=== PATIENT | female | born 1970 | race Hispanic/Latino ===

== ENCOUNTER 2022-05-04 06:42 | Emergency (ER) | payer BC ==
--- OUTSIDE RECORDS SUMMARY | 2022-05-04 06:46 | XMS REPORT | Continuity of Care Document ---
:1970 Author Organization [facility] t Address [address] [place] [address] Care Team Providers Name Role Phone ALEN CARCAMO Primary Care Physician Unavailable FISH Attending Clinician Unavailable Provider, Urgent Care Attending Clinician Unavailable Mauri Bergeron Attending Clinician Mauri DAWSON Attending Clinician Unavailable Doctor Unassigned, Name Attending Clinician Unavailable Fior HEALTH PLAN MANAGER, J Attending Clinician Lab, Fam Pob I Attending Clinician Unavailable Anene HEALTH PLAN MANAGER Attending Clinician ANENE Attending Clinician Unavailable Payers Payer Name Policy Type Policy Number Effective Date Expiration Date S stuart [facility] [id number] 2019 00:00:00 Problems Condition Condition Condition Status Onset Resolution Last Treating Co mments Source Name Details Category Date Date Treatment Clinician Date No known No known Disease Unive rs active active ity of problems problems [facility] Allergies, Adverse Reactions, Alerts Allergy Allergy Status Severity Reaction(s) Onset Inactive Treating Comm ents Source Name Type Date Date Clinician NO KNOWN Drug Active Univers ALLERGIE Class ity of S [facility] Social History Social Habit Start Date Stop Date Quantity Comments Source Exposure to Not sure [facility] SARS-CoV-2 [facility] (event) [place] Tobacco use and 2021-06-02 2021-06-02 Never used Universit y of exposure 00:00:00 00:00:00 [facility] Alcohol intake 2021-06-02 2021-06-02 Current drinker Unive rsity of 00:00:00 00:00:00 of alcohol [facility] (finding) [place] Sex Ass[birth year] At [birth year] Universit y of 00:00:00 00:00:00 [facility] Smoking Status Start Date Stop Date Source Unknown if ever smoked [facility] Never smoker [facility] Medications Ordered Filled Start Stop Current Ordering Indication Dosage Frequency Signature Comments Components Source Medication Medication Date Date Medication? Clinician (SIG) Name Name azelastine Yes [id number] 1{spray Use 1 Univers 137 mcg 7-07 } [place] in ity of (0.1 %) 00:00: each [place] nasal spray 00 nostril 2 Med ical (two) Branch times daily. Use in each nostril as directed benzonatate Yes [id number] 100mg Take 1 Univers (TESSALON 7-07 capsule by ity of [place]) 100 00:00: mouth 3 Jules as mg capsule 00 (three) Medica l times Branch daily. azelastine Yes [id number] 1{spray Use 1 Univers 137 mcg 7-07 } [place] in ity of (0.1 %) 00:00: each [place] nasal spray 00 nostril 2 Med ical (two) Branch times daily. Use in each nostril as directed benzonatate Yes [id number] 100mg Take 1 Univers (TESSALON 7-07 capsule by ity of [place]) 100 00:00: mouth 3 Jules as mg capsule 00 (three) Medica l times Branch daily. azelastine Yes [id number] 1{spray Use 1 Univers 137 mcg 7-07 } [place] in ity of (0.1 %) 00:00: each [place] nasal spray 00 nostril 2 Med ical (two) Branch times daily. Use in each nostril as directed benzonatate Yes [id number] 100mg Take 1 Univers (TESSALON 7-07 capsule by ity of [place]) 100 00:00: mouth 3 Jules as mg capsule 00 (three) Medica l times Branch daily. Vital Signs Vital Name Observation Time Observation Value Comments Source Systolic blood 2021-06-02 18:48:00 121 mm[Hg] Univer sity of pressure [facility] Diastolic blood 2021-06-02 18:48:00 82 mm[Hg] [facility] Heart rate 2021-06-02 18:48:00 91 /min [facility] Body temperature 2021-06-02 18:48:00 37.06 [facility] Respiratory rate 2021-06-02 18:48:00 16 /min [facility] Body height 2021-06-02 18:48:00 154.9 cm [facility] Body weight 2021-06-02 18:48:00 83.915 kg [facility] BMI 2021-06-02 18:48:00 34.96 kg/m2 [facility] Oxygen saturation in 2021-06-02 18:48:00 97 /min [facility] Arterial blood by [facility] Pulse oximetry [place] Procedures This patient has no known procedures. Encounters Start End Encounter Admission Attending Care Care Encounter Source Date/Time Date/Time Type Type Clinicians Facility Department ID 2021-11-22 2021-11-22 Outpatient WILLY OLIVEROSN [facility] [id number] Univers 09:00:00 09:00:[id number] 2021-11-22 2021-11-22 Outpatient R ARIN OLIVEROS [facility] [id number] Univers 09:00:00 09:00:[address] [facility] 2021-06-02 2021-06-02 Urgent Provider, Con Urgent Care [facility] [id number] Univers 13:44:56 14:35:43 Zaira Díaz [facility] [id number] ity [facility] [id number] Jules as Professio [phone] Ak dical [facility] [address] 2021-06-02 2021-06-02 Outpatient R [facility] [id number] Univers 14:00:00 14:00:[id number] [facility] 2021-06-02 2021-06-02 Outpatient R EUNICE [facility] [id number] Univers 14:00:00 14:00:00 ZAIRA [facility] 2021-06-02 2021-06-02 Letter Doctor HOWELL [id number] Univers 00:00:00 00:00:00 (Out) Unassigned, DARRON [id number] ity of [facility] [id number] Jules as [id number] [address] 2021-06-02 2021-06-02 Letter Doctor LYNDA [id number] Univers 00:00:00 00:00:00 (Out) Unassigned, DARRON [id number] ity of [facility] 4.2.7.2.686 Jules as [id number] [address] 2021-01-22 2021-01-22 [facility] [id number] Univers 00:00:00 00:00:00 [facility] [id number] ity of [place] [id number] Jules as Professio [phone] [address] 2021-01-21 2021-01-21 Laboratory Lab, Adc Fam Pob I [facility] [id number] Univers 15:50:28 16:10:[address] [facility] [id number] ity of [place] [id number] Jules as Professio [id number] [address] 2021-01-21 2021-01-21 Outpatient R CORY [facility] [id number] Univers 15:40:00 15:40:00 KIANNA ity of [facility] 2021-01-21 2021-01-21 Letter Doctor LYNDA [id number] Univers 00:00:00 00:00:00 (Out) Unassigned, DARRON [id number] ity of [facility] [id number] Jules as [id number] [address] Results This patient has no known results.
[2022-05-04] MEDS ORDERED: ONDANSETRON 4 MG (ODT) TAB ONE (07:25)
[2022-05-04] MEDS ORDERED: METOCLOPRAMIDE 10 MG/2mL INJ ONE (07:32)
[2022-05-04] MEDS ORDERED: DIPHENHYDRAMINE 50 MG/ML VIAL ONE (07:32)
--- NOTE | 2022-05-04 08:10 | RAD REPORT ---
EXAM DESCRIPTION: CT - Head Brain Wo Cont - 05/04/2022 8:01 am CLINICAL HISTORY: Headache, new or worsening Headache, drowsiness COMPARISON: HEAD BRAIN W O CONTRAST dated 07/07/2008 TECHNIQUE: All CT scans are performed using dose optimization technique as appropriate and may inclu de automated exposure control or mA/KV adjustment according to patient size. FINDINGS: No intracranial hemorrhage, hydrocephalus or extra-axial fluid collection.No areas of brai n edema or evidence of midline shift. The paranasal sinuses and mastoids are clear. The calvarium is intact. IMPRESSION: No acute intracranial abnormality.
--- NOTE | 2022-05-04 08:31 | ER ---
Nurse's Notes [facility] Name: Chantal Newton Age: 51 yrs Sex: Female : 1970 Arrival Date: 05/04/2022 Time: 06:45 Bed 17 Private MD: Diagnosis: Headache Presentation: 05/04 06:57 Chief complaint: Patient states: she has been feeling bad since yesterday with a bb headache, dizziness, blurred vision, SOB, and a bad headache which worsened last night. Spouse states she almost passed out at work yesterday. Coronavirus screen: At this time, the client does not indicate any symptoms associated with coronavirus-19. Ebola Screen: No symptoms or risks identified at this time. Initial Sepsis Screen: Does the patient meet any 2 criteria? No. Patient's initial sepsis screen is negative. Does the patient have a suspected source of infection? No. Patient's initial sepsis screen is negative. Risk Assessment: Do you want to hurt yourself or someone else? Patient reports no desire to harm self or others. Onset of symptoms was May 03, 2022. 06:57 Method Of Arrival: Ambulatory bb 06:57 Acuity: AZAM 3 bb Triage Assessment: 07:00 Headache History: The patient has had previous headaches and this one is more severe bb than previous episodes. 07:00 Pain: Pain currently is 9 out of 10 on a pain scale. Pain began 1 day ago. Also jh6 complains of nausea, photophobia. 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 - Social history:: Smoking status: Patient reports the use of cigarette tobacco products. Screenin:16 Abuse screen: Denies threats or abuse. Nutritional screening: No deficits noted. jh6 Tuberculosis screening: No symptoms or risk factors identified. Fall Risk None identified. Assessment: 07:15 General: Appears uncomfortable, Behavior is calm, cooperative. Pain: Complains of pain jh6 in face. Neuro: Level of Consciousness is awake, alert, obeys commands, Oriented to person, place, time, situation, Reports blurred vision in iris of right eye and iris of left eye headache in entire photophobia weakness since over the last todays. 08:07 Reassessment: Patient and/or family updated on plan of care and expected duration. Pain jh6 level reassessed. Patient is alert, oriented x 3, equal unlabored respirations, skin warm/dry/pink. still slightly dizzy but no longer felling nauseated Patient states feeling better. 08:41 Reassessment: Patient and/or family updated on plan of care and expected duration. Pain jh6 level reassessed. Patient states feeling better. Pain: Denies pain. Complains of pain in face. Neuro: No deficits noted. Vital Signs: 06:57 BP 172 / 84; Pulse 66; Resp 20 S; Temp 97.7(O); Pulse Ox 99% on R/A; Weight 81.65 kg bb (R); Height 5 ft. 1 in. (154.94 cm) (R); Pain 10/10; 08:42 BP 136 / 74; Pulse 71; Resp 16; Pulse Ox 100% ; Pain 2/10; jh6 06:57 Body Mass Index 34.01 (81.65 kg, 154.94 cm) bb Protem Coma Score: 08:31 Eye Response: spontaneous(4). Verbal Response: oriented(5). Motor Response: obeys ms3 commands(6). Total: 15. ED Course: 06:45 Patient arrived in ED. ja2 06:55 Kimberlee Negro, RN is Primary Nurse. lg3 06:57 Hernan Klein DO is Attending Physician. ms3 07:00 Triage completed. bb 07:00 Arm band placed on Patient placed in an exam room, on a stretcher, on pulse oximetry. bb 07:00 Bed in low position. Call light in reach. Side rails up X 1. jh6 07:16 No provider procedures requiring assistance completed. jh6 07:26 Inserted saline lock: 22 gauge in right forearm, using aseptic technique. jg9 07:[address] via wheelchair. jh6 08:03 CT Head Brain wo Cont In Process Unspecified. EDMS 08:30 Brandon Leyva DO is Referral Physician. ms3 08:42 IV discontinued, intact, bleeding controlled, No redness/swelling at site. Pressure 6 dressing applied. Administered Medications: 07:30 Drug: Reglan (metoCLOPramide) 10 mg Route: IVP; Site: right antecubital; 6 08:44 Follow up: Response: Marked relief of symptoms [facility] 07:30 Drug: Benadryl (diphenhydrAMINE) 25 mg Route: IVP; Site: right antecubital; 6 08:44 Follow up: Response: Pain is decreased [facility] er 07:30 Drug: Ondansetron 4 mg Route: PO; 6 08:44 Follow up: Response: Pain is decreased [facility] er Outcome: 08:30 Discharge ordered by . ms3 08:42 Discharged to home ambulatory. 6 08:42 Condition: improved 08:42 Discharge instructions given to patient, family, Instructed on discharge instructions. 08:44 Patient left the ED. [facility] Signatures: Dispatcher [employer] EDMS Kathy Virk RN RN bb Gibson, Lacie, RN RN 3 Hernan Klein DO DO ms3 Felipa Yen Jennifer, RN RN jh6 Ciara Walker RN RN jg9
--- NOTE | 2022-05-04 08:31 | EDPHYS ---
Physician Documentation [facility] Name: Chantal Newton Age: 51 yrs Sex: Female : 1970 Arrival Date: 05/04/2022 Time: 06:45 Bed 17 Private MD: ED Physician Hernan Klein HPI: 05/04 08:31 This 51 yrs old Female presents to ER via Ambulatory with complaints of ms3 Headache, Dizziness, Nausea. 08:31 The patient complains of pain to the generalized. The patient describes the headache as ms3 aching. Onset: The symptoms/episode began/occurred last night. Associated signs and symptoms: Pertinent positives: nausea, vomiting. Severity of symptoms: in the emergency department the pain is unchanged, a " 10" out of "10". Headache History: The patient has had previous headaches and this one is more severe than previous episodes. The symptoms are alleviated by nothing. the symptoms are aggravated by nothing. 51-year-old female presents for headache associated with nausea and vomiting. Patient states yesterday she began feeling dizzy and then developed a headache last night. Patient states her pain is a 10/10 and located throughout her head. Patient denies alleviating or inciting factors. Patient denies fevers, chills.. 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 - Social history:: Smoking status: Patient reports the use of cigarette tobacco products. ROS: 08:31 Constitutional: Negative for fever, and chills. Neck: Negative for injury, pain, and ms3 swelling, Cardiovascular: Negative for chest pain, and palpitations. Respiratory: Negative for shortness of breath, cough, wheezing, and pleuritic chest pain, MS/Extremity: Negative for injury and deformity, Skin: Negative for injury, rash, and discoloration. 08:31 Abdomen/GI: Positive for nausea and vomiting. 08:31 Neuro: Positive for headache. 08:31 All other systems are negative. Exam: 08:31 Constitutional: This is a well developed, well nourished patient who is awake, alert, ms3 and in no acute distress. Head/Face: Normocephalic, atraumatic. ENT: Nares patent. No nasal discharge, no septal abnormalities noted. Tympanic membranes are normal and external auditory canals are clear. Oropharynx with no redness, swelling, or masses, exudates, or evidence of obstruction, uvula midline. Mucous membranes moist. Neck: Trachea midline, no cervical lymphadenopathy. Supple, full range of motion without nuchal rigidity, or vertebral point tenderness. No Meningismus. Chest/axilla: Normal chest wall appearance and motion. Nontender with no deformity. Cardiovascular: Regular rate and rhythm with a normal S1 and S2. No gallops, murmurs, or rubs. Normal PMI, no JVD. No pulse deficits. Respiratory: Lungs have equal breath sounds bilaterally, clear to auscultation and percussion. No rales, rhonchi or wheezes noted. No increased work of breathing, no retractions or nasal flaring. Abdomen/GI: Soft, non-tender, with normal bowel sounds. No distension or tympany. No guarding or rebound. No evidence of tenderness throughout. Neuro: Awake and alert, GCS 15, oriented to person, place, time, and situation. Cranial nerves II-XII grossly intact. Motor strength 5/5 in all extremities. Sensory grossly intact. Cerebellar exam normal. Normal gait. Psych: Awake, alert, with orientation to person, place and time. Behavior, mood, and affect are within normal limits. Vital Signs: 06:57 BP 172 / 84; Pulse 66; Resp 20 S; Temp 97.7(O); Pulse Ox 99% on R/A; Weight 81.65 kg bb (R); Height 5 ft. 1 in. (154.94 cm) (R); Pain 10/10; 08:42 BP 136 / 74; Pulse 71; Resp 16; Pulse Ox 100% ; Pain 2/10; jh6 06:57 Body Mass Index 34.01 (81.65 kg, 154.94 cm) bb Charles Coma Score: 08:31 Eye Response: spontaneous(4). Verbal Response: oriented(5). Motor Response: obeys ms3 commands(6). Total: 15. MDM: 07:23 Patient medically screened. ms3 08:31 Differential diagnosis: cluster headache, intracerebral hemorrhage, sinusitis, ms3 subarachnoid bleed, tension headache. Data reviewed: vital signs, nurses notes, radiologic studies, CT scan, and as a result, I will discharge patient. Counseling: I had a detailed discussion with the patient and/or guardian regarding: the historical points, exam findings, and any diagnostic results supporting the discharge/admit diagnosis, radiology results, the need for outpatient follow up, to return to the emergency department if symptoms worsen or persist or if there are any questions or concerns that arise at home. ED course: Discussed CT Head, physical exam findings with patient. Patient to follow-up with primary care physician in 2 to 3 days. Patient understands and agrees with plan. All questions were answered. Return precautions discussed include worsening symptoms, or any other concerns. On reevaluation patient is alert and oriented x4, in no apparent distress, nontoxic-appearing, speaking full sentences, ambulatory in emergency department. Discussed obtaining LP with patient and her . Patient states she is feeling better at this time and declines LP. Risks of not preforming LP discussed with patient and her and they accept risks.. 05/04 07:23 Order name: CT Head Brain wo Cont; Complete Time: 08:27 ms3 Administered Medications: 07:30 Drug: Reglan (metoCLOPramide) 10 mg Route: IVP; Site: right antecubital; [facility] 08:44 Follow up: Response: Marked relief of symptoms [facility] 07:30 Drug: Benadryl (diphenhydrAMINE) 25 mg Route: IVP; Site: right antecubital; [facility] 08:44 Follow up: Response: Pain is decreased 6 07:30 Drug: Ondansetron 4 mg Route: PO; 6 08:44 Follow up: Response: Pain is decreased 6 Disposition Summary: 05/04/22 08:30 Discharge Ordered Location: Home ms3 Condition: Stable ms3 Diagnosis - Headache ms3 Followup: ms3 - With: Brandon Leyva DO - When: 2 - 3 days - Reason: Recheck today's complaints Discharge Instructions: - Discharge Summary Sheet ms3 - General Headache Without Cause ms3 Forms: - Medication Reconciliation Form ms3 - Thank You Letter ms3 - Antibiotic Education ms3 - Prescription Opioid Use ms3 Signatures: Dispatcher [employer] EJ Naqviard, Kathy, RN RN bb Hernan Klein DO DO ms3 Ciara Wynne RN RN jh6
[2022-05-04 09:14] VITALS: TEMP 97.7
[2022-05-04 09:15] VITALS: BP 136/74; O2SAT 100
== END 2022-05-04 08:44 | disposition home or self-care (01) ==
LOC: ER 06:42
DX: R51.9 Headache, unspecified (principal); I10 Essential (primary) hypertension; Z72.0 Tobacco use
CPT/HCPCS: 70450; 96375; 96374; 99284; J2765; J1200

== ENCOUNTER → 2024-04-30 | Day surgery (SDC) | payer BC ==
--- NOTE | 2024-04-30 13:44 | RAD REPORT ---
EXAM DESCRIPTION: US - Follow Up Breast Axilla Ltd - 04/30/2024 10:17 am CLINICAL HISTORY: N63.21 COMPARISON: Follow Up Breast Axilla Comp dated 04/12/2024; 3D DIAG UNI F/U dated 04/12/2024; 3D SCR MA M BILAT W/CAD dated 03/15/2024; 3D SCR ESTHER BILAT W/CAD dated 08/30/2022 FINDINGS: Targeted left breast sonography was performed with attention to the area of concern in the upper inner quadrant. The patient presented for ultrasound-guided core biopsy, for the abnormality at 10-11 o'clock positio n. Upon meticulous evaluation of the area by myself and the medical technologist hematology, the abnormality in question appears wider than tall, and blends with the adjacent breast tissue. No internal vascularity or other suspicious features. No other adjacent suspicious masses or cysts. Given its location, this probably does not correspond to the inferiorly situated left breast mammographic focal asymmetry. Gi mariluz these findings, the biopsy was deferred at this time, and the below recommendations were given to the patient, to which she expressed understanding and agreement. IMPRESSION: Elongated hypoechoic structure at 10-11 o'clock position, today demonstrated features th at are not suspicious, and do not warrant a biopsy at this time in my opinion. The abnormality also l ikely does not correspond to the more inferiorly situated left breast mammographic nodular asymmetry. Given this, a follow-up ultrasound is recommended in 6 months to re-evaluate this finding. A follow-u p mammogram is also recommended in 6 months to re-evaluate the mammographic abnormality. BI-RADS: 3, probably benign findings. ResultCode: PB6
== END ==
LOC: DS 09:29
PROVIDERS: ATTEND Nurse Practitioner Family
DX: N63.21 Unspecified lump in the left breast, upper outer quadrant (principal); Z53.09 Procedure and treatment not carried out because of other contraindication
CPT/HCPCS: 76642